=== PATIENT | female | born 1945 | race Caucasian/White ===

== ENCOUNTER 2016-07-16 12:30 | Outpatient (RCR) | payer MEDICARE, BC ==
[~2016-07-16 12:30] MED LIST: ARIMIDEX1 MG PO; CALTRATE 600 +1 TAB PO; CINNAMON500 MG PO; DULCOLAX TAB5 MG PO; FIBER THERAPY500 MG PO; FIBERCON PO; JANUVIA 100MG100 MG PO; SANDOSTATI INJ; XARELTO15 MG PO; ZOCOR 10MG10 MG PO
== END 2016-08-12 | disposition home or self-care (01) ==
LOC: WSC → WSPT 12:30
DX: M25.512 Pain in left shoulder (principal)
CPT/HCPCS: G8984-GP; G8985-GP; G8986-GP

== ENCOUNTER → 2016-07-18 | Outpatient (CLI) | payer MEDICARE, BC ==
[~2016-07-18] MED LIST changes: +FIBER CHOICE1 CTB PO; +PERCOCET 325 MG1 TA2 PO; +PRIL40 PO; +SOMATULINE DEP120 MG SQ; +ZOMETA4 MG/5 ML IV
== END ==
LOC: MC.RAD 10:00
DX: Z12.31 Encounter for screening mammogram for malignant neoplasm of breast (principal)

== ENCOUNTER → 2016-08-08 | Outpatient (CLI) | payer MEDICARE, BC | LOC: COL.RAD 08:57 | DX: Z08 Encounter for follow-up examination after completed treatment for malignant neoplasm (principal); M89.9 Disorder of bone, unspecified; E04.2 Nontoxic multinodular goiter; R92.8 Other abnormal and inconclusive findings on diagnostic imaging of breast; Z85.038 Personal history of other malignant neoplasm of large intestine | CPT/HCPCS: A9503; Q9967 ==

== ENCOUNTER → 2016-08-16 | Outpatient (CLI) | payer MEDICARE, BC | LOC: COL.RAD 09:45 | DX: R16.0 Hepatomegaly, not elsewhere classified (principal); K80.80 Other cholelithiasis without obstruction; R19.09 Other intra-abdominal and pelvic swelling, mass and lump ==

== ENCOUNTER 2016-09-03 06:34 | Day surgery (SDC) | payer MEDICARE, BC ==
[2016-09-03] VITALS (7 sets, daily range): BP systolic 119–145; BP diastolic 55–67; PULSE 51–69; TEMP 97.4–98
[~2016-09-03] VITALS: Ht 160 cm; Wt 68.0 kg
[~2016-09-03 06:34] MED LIST changes: -FIBER CHOICE1 CTB PO; -PERCOCET 325 MG1 TA2 PO; -PRIL40 PO; -SOMATULINE DEP120 MG SQ; -ZOMETA4 MG/5 ML IV
[2016-09-03] MEDS ORDERED: SOMATULINE DEP120 MG SQ (07:36)
[2016-09-03] MEDS ORDERED: PRIL40 PO (07:37)
[2016-09-03] MEDS ORDERED: ZOMETA4 MG/5 ML IV (07:40)
[2016-09-03] MEDS ORDERED: PERCOCET 325 MG1 TA2 PO (09:51)
== END 2016-09-03 12:45 | disposition home or self-care (01) ==
LOC: SDCO 06:34
DX: K80.11 Calculus of gallbladder with chronic cholecystitis with obstruction (principal); C78.7 Secondary malignant neoplasm of liver and intrahepatic bile duct; C79.51 Secondary malignant neoplasm of bone; C78.6 Secondary malignant neoplasm of retroperitoneum and peritoneum; Z85.030 Personal history of malignant carcinoid tumor of large intestine; Z85.3 Personal history of malignant neoplasm of breast; Z80.0 Family history of malignant neoplasm of digestive organs; E11.9 Type 2 diabetes mellitus without complications; E78.00 Pure hypercholesterolemia, unspecified; K21.9 Gastro-esophageal reflux disease without esophagitis
CPT/HCPCS: J0690; J1100; J2405; J2704; J2710; J3010; J7120; Q9967

== ENCOUNTER 2016-10-21 13:42 | Day surgery (SDC) | payer MEDICARE, BC ==
[~2016-10-21] VITALS: Ht 160 cm; Wt 68.8 kg
[2016-10-21] VITALS (7 sets, daily range): BP systolic 119–138; BP diastolic 60–74; PULSE 63–68; TEMP 98.3
[~2016-10-21 13:42] MED LIST changes: +PERCOCET 325 MG1 TA2 PO; +PRIL40 PO; +SOMATULINE DEP120 MG SQ; +ZOMETA4 MG/5 ML IV
[2016-10-21] MEDS ORDERED: FIBER CHOICE1 CTB PO (14:43)
== END 2016-10-21 17:00 | disposition home or self-care (01) ==
LOC: SDCO 13:42
DX: K83.8 Other specified diseases of biliary tract (principal); C18.9 Malignant neoplasm of colon, unspecified; K21.9 Gastro-esophageal reflux disease without esophagitis; D3A.8 Other benign neuroendocrine tumors; R10.13 Epigastric pain; Z90.49 Acquired absence of other specified parts of digestive tract; Z80.0 Family history of malignant neoplasm of digestive organs
CPT/HCPCS: C1769; J2704; J3010; J7120; Q9967

== ENCOUNTER → 2017-02-17 | Outpatient (CLI) | payer MEDICARE, BC ==
[~2017-02-17] MED LIST changes: +FIBER CHOICE1 CTB PO
== END ==
LOC: MC.RAD 08:57
DX: N64.4 Mastodynia (principal); Z98.890 Other specified postprocedural states; Z85.3 Personal history of malignant neoplasm of breast

== ENCOUNTER → 2017-08-14 | Outpatient (CLI) | payer MEDICARE, BC | LOC: MC.RAD 14:16 | DX: Z12.31 Encounter for screening mammogram for malignant neoplasm of breast (principal) ==

== ENCOUNTER → 2017-09-16 | Outpatient (CLI) | payer MEDICARE, BC ==
[2017-09-16 11:46] LABS: BASO # 0.1 (0.0-0.2); EOS # 0.2 (0.0-0.7); GRAN % 69.5 % (42.2-75.2); HEMATOCRIT 43.9 % (37.0-47.0); HEMOGLOBIN 14.6 g/dl (12.5-16.0); LYMPH # 1.4 (1.2-3.4); LYMPH % 19.3 % (20.0-51.0); MEAN CELL VOLUME 87 fl (80.0-100.0); MEAN CORPUSCULAR HEMOGLOBIN 29 pg (27.0-31.0); MEAN CORPUSCULAR HGB CONC 33 g/dl (33.0-37.0); MEAN PLATELET VOLUME 10.3 fl (7.4-10.4); MONO # 0.5 (0.1-0.6); MONO % 6.6 % (1.7-9.3); PLATELET COUNT 220 K/mm3 (130-400); RED BLOOD COUNT 5.03 M/mm3 (4.10-5.30); REDCELL DISTRIBUTION WIDTH-CV 13.5 % (11.5-14.5)
[2017-09-16 12:00] LABS: BILIRUBIN,TOTAL 1.9 mg/dL (0.0-1.0); CREATININE, serum 0.84 mg/dL (0.52-1.25); POTASSIUM 3.9 mmol/L (3.4-5.0); TOTAL PROTEIN 7.5 gm/dL (6.4-8.2)
== END ==
LOC: COL.LAB 11:21
PROVIDERS: Family Medicine
DX: R10.13 Epigastric pain (principal)

== ENCOUNTER 2018-07-24 10:20 | Day surgery (SDC) | payer MEDICARE, BC ==
[~2018-07-24] VITALS: Ht 157.5 cm; Wt 68.5 kg
[2018-07-24 11:14] VITALS: BP 127/77; PULSE 55; TEMP 97.8
[2018-07-24 12:20] VITALS: BP 115/64; PULSE 68; TEMP 97.7
[2018-07-24 12:35] VITALS: BP 118/70; PULSE 70
[2018-07-24 12:50] VITALS: BP 118/72; PULSE 68
[2018-07-24 13:05] VITALS: BP 120/70; PULSE 68; TEMP 98
--- NOTE | 2018-07-24 13:48 | NUR ---
PATIENT RETURNS TO [facility] VIA CART FROM OR. ALERT AND ORIENTED X 4. DENIES PAIN. DENIES NAUSEA. VS STARTED. CRACKERS AND SPRITE GIVEN. CALL LIGHT IN REACH. AT BEDSIDE.
--- NOTE | 2018-07-24 13:59 | NUR ---
DISCHARGE INSTRUCTIONS GIVEN TO PATIENT AND . VS HAVE BEEN STABLE. WHEELCHAIR ASSIST TO PERSONAL VEHICHLE.
== END 2018-07-24 13:05 | disposition home or self-care (01) ==
LOC: SDCO 10:20
DX: K57.30 Diverticulosis of large intestine without perforation or abscess without bleeding (principal); K83.1 Obstruction of bile duct; K21.9 Gastro-esophageal reflux disease without esophagitis; Z85.038 Personal history of other malignant neoplasm of large intestine; Z85.05 Personal history of malignant neoplasm of liver; Z83.3 Family history of diabetes mellitus; Z90.49 Acquired absence of other specified parts of digestive tract; D3A.8 Other benign neuroendocrine tumors
CPT/HCPCS: J2250; J2405; J3010; J7030

== ENCOUNTER → 2018-12-18 | Outpatient (CLI) | payer MEDICARE, BC | LOC: MC.RAD 11:04 | DX: Z12.31 Encounter for screening mammogram for malignant neoplasm of breast (principal); Z85.3 Personal history of malignant neoplasm of breast ==

== ENCOUNTER → 2019-07-29 | Outpatient (CLI) | payer MEDICARE, BC | LOC: COL.RAD 10:00 | DX: C7B.8 Other secondary neuroendocrine tumors (principal); C78.7 Secondary malignant neoplasm of liver and intrahepatic bile duct; A18.39 Retroperitoneal tuberculosis; K76.4 Peliosis hepatis | CPT/HCPCS: Q9967 ==

== ENCOUNTER 2019-12-13 10:31 | Observation (INO) | payer MEDICARE, BC ==
[~2019-12-13] VITALS: Ht 157.5 cm; Wt 62.2 kg
[2019-12-13] MEDS ORDERED: JANUVIA50 MG PO (10:47)
[2019-12-13] MEDS ORDERED: BENTYL 10MG10 MG/CAP PO (10:48)
[2019-12-13] MEDS ORDERED: ZOCOR 20MG20 MG PO (10:49)
[2019-12-13] MEDS ORDERED: PRIL40 PO (10:49)
[2019-12-13] MEDS ORDERED: SOMATULINE DEP120 MG SQ (10:49)
--- NOTE | 2019-12-13 10:50 | NUR ---
Patient ambulated up to room 343, steady gait. Alert and oriented x 3. Assessment complete. Patient oriented to room. Denies further needs at this time.
[2019-12-13 11:07] VITALS: BP 114/55; PULSE 68; TEMP 98.3
[2019-12-13 12:04] LABS: HEMATOCRIT 37.7 % (37.0-47.0); HEMOGLOBIN 12.7 g/dl (12.5-16.0); MEAN CELL VOLUME 90 fl (80.0-100.0); MEAN CORPUSCULAR HEMOGLOBIN 30 pg (27.0-31.0); MEAN CORPUSCULAR HGB CONC 34 g/dl (33.0-37.0); MEAN PLATELET VOLUME 9.4 fl (7.4-10.4); PLATELET COUNT 222 K/mm3 (130-400); RED BLOOD COUNT 4.19 M/mm3 (4.10-5.30); REDCELL DISTRIBUTION WIDTH-CV 13.2 % (11.5-14.5)
[2019-12-13 12:12] LABS: ALBUMIN 3.5 gm/dL (3.5-5.0); BILIRUBIN,TOTAL 1.2 mg/dL (0.0-1.0); CALCIUM 9.2 mg/dL (8.4-10.2); CREATININE, serum 0.83 (0.52-1.25); POTASSIUM 3.2 mmol/L (3.4-5.0); TOTAL PROTEIN 6.3 gm/dL (6.4-8.2)
--- NOTE | 2019-12-13 13:00 | NUR ---
Dr. Robertson in to see patient.
[2019-12-13 13:17] LABS: BAND 10 % (0-10); LYMPHOCYTE 6 % (20.0-51.0); METAMYELOCYTE 2 % (0-0); MYELOCYTE 2 % (0-0); NEUTROPHILS 77 % (42.0-75.2)
[2019-12-13 13:19] LABS: PLATELET ESTIMATE NORMAL (NORMAL)
--- NOTE | 2019-12-13 14:55 | NUR ---
Left message for Dr. Robertson, patient CT results are available.
--- NOTE | 2019-12-13 16:06 | NUR ---
Left VM for Dr. Robertson, patient would like to dischage.
[2019-12-13 16:53] VITALS: BP 126/69; PULSE 72; TEMP 98.6
--- NOTE | 2019-12-13 18:59 | NUR ---
Reported off to nightclub manager.
[2019-12-13] MEDS ORDERED: ARIMIDEX1 MG PO (19:30)
[2019-12-13 21:32] VITALS: BP 139/70; PULSE 66; TEMP 98.9
--- NOTE | 2019-12-13 22:00 | NUR ---
Pt currently resting in bed. I did contact Dr. Robertson at the beginning of the shift. Pt had concerns about why she had to stay overnight. I informed Dr. Robertson about her concerns and he wanted her to stay for observation and to have her potassium replaced and a lab redraw in the am. Pt was accepting of staying over night. Pt agreed to begin her potassium and she has been having it in grape juice. Pt has been independent in her room. Her vitals have been within normal limits and she has no complaints of pain at this time.
--- NOTE | 2019-12-13 22:42 | NUR ---
Pt currently sitting up in bed. Pt tolerated her potassium well in some grape juice. Pt stated that she has no more pain at this time. Pt has her call light within reach. She is waiting on her next dose of potassium at 2315.
[2019-12-14 00:07] VITALS: BP 113/43; PULSE 70; TEMP 98.7
[2019-12-14 04:06] VITALS: BP 124/68; PULSE 71; TEMP 98.7
--- NOTE | 2019-12-14 04:06 | NUR ---
Pt currently lying in bed awake. Pt stated that since her last potassium in grape juice she has had some loose stools. She said that she had a few that were very dark but has since then been liquid. I asked pt if she would call next time so that I'm able to assess her bowel movement. Pt has her call light within reach and her bed is in lowest position.
--- NOTE | 2019-12-14 07:07 | NUR ---
Reported off to TREY Koo. Pt currently sitting up in bed. Pt has her call light within reach. Pt did have a loose stool this morning. The color was more of a dark green .
--- NOTE | 2019-12-14 08:00 | NUR ---
Patient in bed resting. Alert and oriented x 3. Assessment complete. Fluids infusing per orders. Denies further needs at this time.
[2019-12-14 08:26] LABS: PATHOLOGY DIFF REVIEW OK
[2019-12-14 09:02] LABS: MEAN CELL VOLUME 89 fl (80.0-100.0); MEAN CORPUSCULAR HEMOGLOBIN 30 pg (27.0-31.0); MEAN CORPUSCULAR HGB CONC 34 g/dl (33.0-37.0); MEAN PLATELET VOLUME 9.7 fl (7.4-10.4); PLATELET COUNT 205 K/mm3 (130-400); RED BLOOD COUNT 3.96 M/mm3 (4.10-5.30); REDCELL DISTRIBUTION WIDTH-CV 13.2 % (11.5-14.5)
[2019-12-14 09:03] LABS: HEMATOCRIT 35.4 % (37.0-47.0)
[2019-12-14 09:13] LABS: CALCIUM 8.9 mg/dL (8.4-10.2); CREATININE, serum 0.66 (0.52-1.25); PHOSPHOROUS 3.5 mg/dL (2.5-4.5); POTASSIUM 3.8 mmol/L (3.4-5.0)
[2019-12-14 09:30] VITALS: BP 127/56; PULSE 65; TEMP 97.8
[2019-12-14 09:56] LABS: BAND 13 % (0-10); BASOPHIL 1 % (0-2); EOSINOPHIL 1 % (0-4); LYMPHOCYTE 4 % (20.0-51.0); METAMYELOCYTE 2 % (0-0); NEUTROPHILS 71 % (42.0-75.2); PLATELET ESTIMATE NORMAL (NORMAL)
--- NOTE | 2019-12-14 10:00 | NUR ---
Furnace Charging Machine Operator met with the patient to complete initial intake. The patient lives in [place] with her , Alon. The patient denies DME use and is independent with ADLs. The patient's PCP is Dr. Miguel and patient receives medications from [facility] with no difficulties. The patient has advanced directives in the EMR. The patient plans to return home at discharge with no concerns about doing so. Alon will provide transportation. There are no additional needs at this time.
--- NOTE | 2019-12-14 10:59 | NUR ---
First visit from the clinical engineer. No needs right now.
--- NOTE | 2019-12-14 11:10 | NUR ---
Contacted Dr. Robertson, patient tolerating diet. Would like to discharge today.
[2019-12-14 11:17] VITALS: BP 119/57; PULSE 65; TEMP 98.5
--- NOTE | 2019-12-14 11:30 | NUR ---
Discharge education provided to patient. Educated on when to call provider and increasing fluid intake. Denies further needs at this time. INT to right AC discontinued, catheter tip intact. Patien will call when ride is here.
--- NOTE | 2019-12-14 11:40 | NUR ---
Patient ambulated out with surgical staff.
== END 2019-12-14 11:40 | disposition home or self-care (01) ==
LOC: SURG 10:31
PROVIDERS: ADMIT Surgery
DX: K56.609 Unspecified intestinal obstruction, unspecified as to partial versus complete obstruction (principal); E87.6 Hypokalemia; C7A.8 Other malignant neuroendocrine tumors; C7B.8 Other secondary neuroendocrine tumors; K21.9 Gastro-esophageal reflux disease without esophagitis; E11.9 Type 2 diabetes mellitus without complications; E78.2 Mixed hyperlipidemia; E55.9 Vitamin D deficiency, unspecified; R73.01 Impaired fasting glucose; Z90.49 Acquired absence of other specified parts of digestive tract; Z79.84 Long term (current) use of oral hypoglycemic drugs; Z98.51 Tubal ligation status; Z85.038 Personal history of other malignant neoplasm of large intestine; Z87.891 Personal history of nicotine dependence; Z79.899 Other long term (current) drug therapy; Z79.811 Long term (current) use of aromatase inhibitors; Z85.3 Personal history of malignant neoplasm of breast
CPT/HCPCS: G0378; J7120; Q9967

== ENCOUNTER → 2019-12-23 | Outpatient (CLI) | payer MEDICARE, BC ==
[~2019-12-23] MED LIST changes: +BENTYL 10MG10 MG/CAP PO; +JANUVIA50 MG PO; +ZOCOR 20MG20 MG PO
== END ==
LOC: COL.RAD 09:34
DX: K56.600 Partial intestinal obstruction, unspecified as to cause (principal)

== ENCOUNTER → 2021-12-14 | Outpatient (CLI) | payer MEDICARE, BC | LOC: MC.RAD 10:13 | DX: Z12.31 Encounter for screening mammogram for malignant neoplasm of breast (principal); Z85.3 Personal history of malignant neoplasm of breast; Z92.3 Personal history of irradiation; Z90.11 Acquired absence of right breast and nipple ==